=== PATIENT | male | born 1980 | race Caucasian/White ===

== ENCOUNTER 2017-01-22 08:53 | Emergency (ER) | payer OTHER ==
[~2017-01-22] VITALS: Ht 175.3 cm; Wt 77.3 kg
[2017-01-22] MEDS ORDERED: SOD CHLORIDE 0.9% 1,000 ML IV STA (08:57)
[2017-01-22] MEDS ORDERED: LACTATED RINGER'S 1,000 ML IV STA (08:57)
--- NOTE | 2017-01-22 09:34 | ERA ---
ER Documentation Chief Complaint Date/Time DATE: 01/22/17 TIME: 09:32 Chief Complaint HPI This is a 36-year-old male history of insulin-dependent diabetes who presents after using heroin for the last several days. He states that he has not been taking his Lantus. Accu-Chek in the field was critical high. The patient describes diffuse body pain. He denies any fevers, chills, chest pain, shortness of breath no abdominal pain. He cannot characterize the pain. He is just states "it hurts ". He denies any suicidal homicidal thoughts. ROS All systems reviewed and are negative except as per history of present illness. Medications Home Meds Reported Medications Lisinopril* (Lisinopril*) 10 Mg Tablet, 10 MG PO DAILY, #30 TAB 01/22/17 Insulin Regular, Human (Humulin R) 100 Unit/1 Ml Vial, 0 IJ AC MEALS AND BEDTIME , VIAL SLIDING SCALE NO SCALE GIVEN 01/22/17 [Basaglar] No Conflict Check, 20 SC* BID 01/22/17 Allergies Allergies: Coded Allergies: No Known Allergy (Unverified , 01/22/17) FmHx Family History: No diabetes Physical Exam Vitals Vital Signs Date Time Temp Pulse Resp B/P Pulse Ox O2 Delivery O2 Flow Rate FiO2 01/22/17 09:47 97.5 63 26 131/67 100 Physical Exam General: Somewhat disheveled, no significant distress Head: Normocephalic, atraumatic. Eyes: Pupils equally reactive, EOM intact ENT: Dry mucous membranes Neck: Supple, no lymphadenopathy Respiratory: Lungs clear bilaterally, no distress Cardiovascular: RRR, no murmurs, rubs, or gallops Abdominal: Soft, non-tender, non-distended, no peritoneal signs : Deferred MSK: No edema, no unilateral swelling, 5/5 strength Neurologic: Alert and oriented, moving all extremities, normal speech, no focal weakness, no cerebellar signs Skin: No rash Psych: Normal mood Result Diagram: 01/22/1792301/22/17923 Results 24 hrs Laboratory Tests Test 01/22/17 08:57 01/22/17 09:24 01/22/17 09:36 01/22/17 10:13 Blood Gas Specimen Source Blood venous Arterial Blood Date Drawn 01/22/2017 9:28:00 AM Arterial Blood Gas Puncture Site VENOUS LINE Willie Test N/A Venous Blood pH 7.443 Venous Blood pCO2 (Temp Corrected) 31.8mmHG Venous Blood pO2 (Temp Corrected) 49.6mmHG Venous Blood HCO3 21.3mmol/L Venous Blood Oxygen Saturation 87.3mmHG Venous Blood Base Excess -2.0mmol/L Venous Blood Total Hemoglobin 13.1g/dl Venous Blood Oxyhemoglobin 86.1% Venous Blood Methemoglobin 0.3% Blood Gas A-a O2 Differential 62.1mmHg Carboxyhemoglobin 1.1% Blood Gas Temperature 37.0C Blood Gas Modality ROOM AIR FiO2 21.0% Blood Gas Critical Value Read Back FE Spann Blood Gas Notified Whom [facility] Blood Gas Notified Time 01/22/2017 9:36:00 AM White Blood Count 8.110^3/ul Red Blood Count 4.2410^6/ul Hemoglobin 12.2g/dl Hematocrit 35.1% Mean Corpuscular Volume 82.8fl Mean Corpuscular Hemoglobin 28.8pg Mean Corpuscular Hemoglobin Concent 34.8g/dl Red Cell Distribution Width 12.7% Platelet Count 40802^3/UL Mean Platelet Volume 10.5fl Neutrophils % 85.8% Lymphocytes % 8.3% Monocytes % 4.8% Eosinophils % 0.2% Basophils % 0.2% Nucleated Red Blood Cells % 0.0/100WBC Neutrophils # (Manual) 6.910^3/ul Lymphocytes # 0.710^3/ul Monocytes # 0.410^3/ul Eosinophils # 0.010^3/ul Basophils # 0.010^3/ul Nucleated Red Blood Cells # 0.010^3/ul Sodium Level 131mmol/L Potassium Level 2.6mmol/L Chloride Level 99mmol/L Carbon Dioxide Level 19mmol/L Anion Gap 16 Blood Urea Nitrogen 10mg/dl Creatinine 0.59mg/dl Glucose Level 474mg/dl Calcium Level 7.3mg/dl Phosphorus Level 1.5mg/dl Magnesium Level 1.8mg/dl Ethyl Alcohol Level 83.0mg/dl Bedside Glucose 496mg/dL Urine Color STRAW Urine Clarity CLEAR Urine pH 7.0 Urine Specific [place] 1.028 Urine Ketones TRACEmg/dL Urine Nitrite NEGATIVEmg/dL Urine Bilirubin NEGATIVEmg/dL Urine Urobilinogen 1+mg/dL Urine Leukocyte Esterase NEGATIVELeu/ul Urine Hemoglobin NEGATIVEmg/dL Urine Glucose 3+mg/dL Urine Total Protein NEGATIVEmg/dl Urine Opiates Screen Negative Urine Barbiturates Negative Urine Amphetamines Screen Negative Urine Benzodiazepines Screen Negative Urine Cocaine Screen Negative Urine Cannabinoids Positive Current Medications Medications (Trade) Dose Ordered Sig/Shala Route PRN Reason Start Time Stop Time Status Last Admin Dose Admin Sodium Chloride 1,000 ml @ 1,000 mls/hr Q1H STAT IV 01/22/17 08:57 01/22/17 09:56 DC 01/22/17 09:25 Lactated Ringer's 1,000 ml @ 1,000 mls/hr Q1H STAT IV 01/22/17 08:57 01/22/17 09:56 DC 01/22/17 10:25 Potassium Chloride (KCl 10 MEQ/50 ML SW) 50 ml @ 50 mls/hr Q1H IVPB 01/22/17 11:00 01/22/17 12:59 01/22/17 11:15 Potassium Chloride 40 meq 40 meq ONCE STAT PO 01/22/17 10:48 01/22/17 11:09 DC Potassium Chloride (KCl 20 MEQ/50 ML SW) 50 ml @ ud STK-MED ONCE .ROUTE 01/22/17 10:55 01/22/17 10:56 DC Potassium Chloride (Klor-Con 20) 20 meq STK-MED ONCE PO 01/22/17 10:55 01/22/17 10:56 DC Procedures/MDM EKG, MONITORS, & DIAGNOSTIC IMAGING: EKG: I reviewed and interpreted a 12-lead EKG. Rhythm: Normal sinus rhythm Ectopy: None Intervals: No abnormalities ST segments: No elevations or depressions T waves: No contiguous inversions Chest x-ray: I reviewed and interpreted a 1 view of the chest Mediastinum: No enlargement Cardiac silhouette: No cardiomegaly Airspace: Clear lung leach bilaterally without evidence of pneumothorax Bones: No evidence of fracture LAB INTERPRETATION: Hyperglycemia, normal anion gap, hypokalemia, borderline ketones in urine MEDICAL DECISION MAKING: The patient presents to the emergency room with a critical high glucose after not taking his Lantus. The patient has a history of polysubstance abuse without signs or symptoms concerning for complication or infectious process. The patient's symptoms are likely secondary to dehydration in the setting of persistent hyperglycemia. The patient will benefit from DKA evaluation as he has had DKA in the past. ER COURSE: The patient was given 1 L saline, 1 L of lactated Ringer's. He had hypokalemia. The patient had early signs of potential diabetic ketoacidosis however the patient had a normal pH and a normal anion gap. He did have some ketonuria and would benefit from subcutaneous insulin. However the patient had hypokalemia. The patient needed repletion prior to insulin administration. The patient spit up the oral potassium and received IV potassium 20 mEq. Prior to me being able to administer in order the subcutaneous insulin the patient states that he wants to leave and needs to smoke a cigarette. The patient was informed that he needs his insulin. He verbalizes understanding but states that he wants to leave the emergency department. The patient left prior to receiving discharge instructions. He is leaving against my medical advice as I was not able to provide insulin to this patient. He was advised verbally to take his insulin at home. The patient ambulated out of the emergency room through the ambulance bay. I kept the patient and/or family informed of laboratory and diagnostic imaging results throughout the emergency room course. DISPOSITION PLAN: Patient is leaving against my medical advice prior to completion of care. Departure Diagnosis: Primary Impression: Heroin abuse Additional Impressions: Hyperglycemia Ketonuria Hypokalemia Condition: Stable MAIK MIRAMONTES MD Jan 22, 2017 09:34
[2017-01-22 09:39] LABS: BASOPHILS % 0.2 % (0.0-2.0); EOSINOPHILS % 0.2 % (0.0-7.0); HEMATOCRIT 35.1 % (42.0-52.0); HEMOGLOBIN 12.2 g/dl (14.0-18.0); LYMPHOCYTES # 0.7 10^3/ul (0.8-2.9); LYMPHOCYTES % 8.3 % (15.0-51.0); MEAN CORPUSCULAR HEMOGLOBIN 28.8 pg (29.0-33.0); MEAN CORPUSCULAR HGB CONC 34.8 g/dl (32.0-37.0); MEAN CORPUSCULAR VOLUME 82.8 fl (82.0-101.0); MEAN PLATELET VOLUME 10.5 fl (7.4-10.4); MONOCYTE # 0.4 10^3/ul (0.3-0.9); MONOCYTES % 4.8 % (0.0-11.0); NEUTROPHILS % 85.8 % (39.0-77.0); PLATELET COUNT 204 10^3/UL (140-415); RED BLOOD COUNT 4.24 10^6/ul (4.70-6.10); RED CELL DISTRIBUTION WIDTH 12.7 % (11.5-14.5); WHITE BLOOD COUNT 8.1 10^3/ul (4.8-10.8)
--- NOTE | 2017-01-22 09:40 | RADRPT ---
PROCEDURE: XR Chest. CLINICAL INDICATION: Hyperglycemia TECHNIQUE: Single AP view of the chest were obtained COMPARISON: None FINDINGS: The heart and mediastinum are within normal limits. The pulmonary vasculature are unremarkable. The aorta is unremarkable. There is no lung consolidation, pleural effusion or pneumothorax. There i s no acute osseous abnormality. IMPRESSION: No acute disease. RPTAT: AA .Chris Roblero MD, Date Time Electronically viewed and signed by .Chris Roblero MD, on 01/22/2017 09:40 .J/
[2017-01-22 09:47] VITALS: Ht 175.3 cm; Wt 77.3 kg
[2017-01-22 09:54] LABS: CALCIUM 7.3 mg/dl (8.4-10.2); CREATININE 0.59 mg/dl (0.61-1.24); MAGNESIUM 1.8 mg/dl (1.7-2.5); PHOSPHORUS 1.5 mg/dl (2.5-4.9)
[2017-01-22 09:56] LABS: POTASSIUM 2.6 mmol/L (3.5-5.1)
[2017-01-22] MEDS ORDERED: POTASSIUM CHLORIDE (SR) 20 MEQ TAB PO STA (10:48)
[2017-01-22] MEDS ORDERED: POTASSIUM CHLORIDE (SR) 20 MEQ TAB PO ONE (10:55)
[2017-01-22] MEDS ORDERED: POTASSIUM CHLORIDE 50 ML ONE (10:55)
[2017-01-22 11:13] LABS: ADD UMIC NO; UR ASCORBIC ACID NEGATIVE (NEGATIVE); UR BILIRUBIN (Dip) NEGATIVE (NEGATIVE); UR BLOOD (Dip) NEGATIVE (NEGATIVE); UR CLARITY CLEAR (CLEAR); UR COLOR STRAW (YELLOW); UR GLUCOSE (Dip) 3+ mg/dL (NEGATIVE); UR KETONES (Dip) TRACE mg/dL (NEGATIVE); UR LEUKOCYTE ESTERASE (Dip) NEGATIVE Leu/ul (NEGATIVE); UR NITRITE (Dip) NEGATIVE (NEGATIVE); UR SPECIFIC GRAVITY (Dip) 1.028 (1.003-1.030); UR TOTAL PROTEIN (Dip) NEGATIVE (NEGATIVE); UR UROBILINOGEN (Dip) 1+ mg/dL (NEGATIVE)
[2017-01-22] MEDS: POTASSIUM CHLORIDE 50 ML IVPB SCH ×2 (11:15→12:00)
[2017-01-22] MEDS ORDERED: BASAGLAR SC* (11:28)
[2017-01-22] MEDS ORDERED: LISI10TA2 PO (11:29)
[2017-01-22] MEDS ORDERED: INSU100V3 IJ (11:29)
[2017-01-22 11:32] LABS: OPIATES Negative (NEGATIVE)
[2017-01-22 11:33] LABS: BARBITURATES Negative (NEGATIVE); BENZODIAZEPINES Negative (NEGATIVE); CANNABINOIDS Positive (NEGATIVE); COCAINE Negative (NEGATIVE)
[2017-01-22 11:46] LABS: MODE ROOM AIR; MetHgb Venous 0.3 %; Sample Type Blood venous; Venous COHb 1.1 %; Venous Fraction OxyHgb 86.1 %; Venous Total Hemglobin 13.1 g/dl
== END 2017-01-22 15:18 | disposition home or self-care (01) ==
LOC: E/R 08:53
DX: F11.10 Opioid abuse, uncomplicated (principal); E11.65 Type 2 diabetes mellitus with hyperglycemia; R82.4 Acetonuria; E87.6 Hypokalemia; Z79.4 Long term (current) use of insulin
CPT/HCPCS: 36415; 71010; 80048; 80306; 80307; 81003; 82803; 82962; 83735; 84100; 85025; 93005; J3480; J7030; J7120; Z7502; Z7610